=== PATIENT | male | born 1945 | race Asian ===

== ENCOUNTER 2018-11-06 06:50 | Day surgery (SDC) | payer MEDICAID ==
[~2018-11-06] VITALS: Ht 180.3 cm; Wt 67.7 kg
[~2018-11-06 06:50] MED LIST: FELO5ER PO; SODIUM CHLORIDE 0.9% 1,000 ML IV ONE
[2018-11-06] MEDS ORDERED: FentaNYL CITRATE-PF 100 MCG/2 ML VIAL ONE (08:21)
[2018-11-06] MEDS ORDERED: MIDAZOLAM HCL 5 MG/ML VIAL ONE (08:21)
[2018-11-06] MEDS ORDERED: OXYGEN THERAPY IH SCH (09:15)
== END 2018-11-06 10:30 | disposition home or self-care (01) ==
LOC: SURGERY 06:50
PROVIDERS: ATTEND Specialist
DX: K64.1 Second degree hemorrhoids (principal); K63.89 Other specified diseases of intestine; I10 Essential (primary) hypertension; I48.91 Unspecified atrial fibrillation; Z72.89 Other problems related to lifestyle; Z98.890 Other specified postprocedural states; Z84.1 Family history of disorders of kidney and ureter; Z80.6 Family history of leukemia
CPT/HCPCS: 45380; 93005; C1769; J2250; J3010; J7030; 88305